=== PATIENT | female | born 1955 | race Caucasian/White ===

== ENCOUNTER 2021-04-06 09:22 | Outpatient (CLI) | payer OTHER | END 2021-04-06 09:31 | disposition home or self-care (01) | LOC: RX STUDY 09:22 | DX: K56.601 Complete intestinal obstruction, unspecified as to cause (principal) ==

== ENCOUNTER 2021-05-01 08:31 | Outpatient (CLI) | payer OTHER | END 2021-05-01 08:40 | disposition home or self-care (01) | LOC: TOM 08:31 | PROVIDERS: ATTEND Colon & Rectal Surgery | DX: C19 Malignant neoplasm of rectosigmoid junction (principal); K62.4 Stenosis of anus and rectum | CPT/HCPCS: 74177; Q9965 ==

== ENCOUNTER 2021-06-29 11:00 | Inpatient (IN) | payer OTHER ==
[~2021-06-29] VITALS: Ht 167.6 cm; Wt 54.4 kg
[2021-06-29] MEDS ORDERED: COZAAR50 MG PO (15:37)
[2021-06-29] MEDS ORDERED: DETROL2 MG PO (15:38)
[2021-06-29] MEDS ORDERED: NORVASC2.5 M1 PO (15:38)
[2021-06-29] MEDS ORDERED: SIMVAST PO (15:39)
[2021-06-29] MEDS ORDERED: MULTIVITAM PO (15:39)
[2021-07-01] MEDS ORDERED: SIMVASTATIN20 MG (13:21)
[2021-07-01] MEDS ORDERED: MULTI VITAMIN1 EACH (13:21)
[2021-07-01] MEDS ORDERED: ALENDRONATE SOD70 MG (13:21)
== END 2021-07-07 13:00 | disposition home or self-care (01) | DRG 331 ==
LOC: SURH 07-01 11:00 → O/R 07-01 12:03 → SURH 07-01 13:30 → SURG 07-01 19:21
PROVIDERS: ADMIT Colon & Rectal Surgery; ATTEND Colon & Rectal Surgery
PROC: 0DBP0ZZ Excision of Rectum, Open Approach (ICD-10-PCS; 2021-07-01)
PROC: 0D1B0Z4 Bypass Ileum to Cutaneous, Open Approach (ICD-10-PCS; 2021-07-01)
PROC: 0DBL0ZZ Excision of Transverse Colon, Open Approach (ICD-10-PCS; 2021-07-01)
PROC: 0DTN0ZZ Resection of Sigmoid Colon, Open Approach (ICD-10-PCS; principal; 2021-07-01 13:30)
DX: K62.4 Stenosis of anus and rectum (principal); R59.0 Localized enlarged lymph nodes; Z93.2 Ileostomy status; Z20.822 Contact with and (suspected) exposure to COVID-19; I11.9 Hypertensive heart disease without heart failure

== ENCOUNTER 2022-01-08 09:30 | Inpatient (IN) | payer OTHER ==
[~2022-01-08] VITALS: Ht 167.6 cm; Wt 54.4 kg
[~2022-01-08 09:30] MED LIST: ALENDRONATE SOD70 MG; COZAAR50 MG PO; DETROL LA2 MG; DETROL2 MG PO; MULTI VITAMIN1 EACH; MULTIVITAM PO; NORVASC2.5 M1 PO; SIMVAST PO; SIMVASTATIN20 MG
[2022-01-12] MEDS ORDERED: LOSARTAN POTASS50 MG (14:01)
[2022-01-12] MEDS ORDERED: NORVASC2.5 MG (14:01)
== END 2022-01-26 19:02 | disposition home or self-care (01) | DRG 347 ==
LOC: EDSTATUS 09:30 → ADM 09:30 → O/R 01-12 05:50 → SURH 01-12 05:50 → ICU 01-14 15:54 → SURH 01-21 18:30
PROVIDERS: ADMIT Colon & Rectal Surgery; ATTEND Colon & Rectal Surgery
PROC: 0DBB4ZZ Excision of Ileum, Percutaneous Endoscopic Approach (ICD-10-PCS; principal; 2022-01-12 08:45)
PROC: 0BH18EZ Insertion of Endotracheal Airway into Trachea, Via Natural or Artificial Opening Endoscopic (ICD-10-PCS; 2022-01-13)
PROC: 5A1955Z Respiratory Ventilation, Greater than 96 Consecutive Hours (ICD-10-PCS; 2022-01-13)
PROC: BW24YZZ Computerized Tomography (CT Scan) of Chest and Abdomen using Other Contrast (ICD-10-PCS; 2022-01-13)
PROC: 4A12X4Z Monitoring of Cardiac Electrical Activity, External Approach (ICD-10-PCS; 2022-01-13)
PROC: 02HV33Z Insertion of Infusion Device into Superior Vena Cava, Percutaneous Approach (ICD-10-PCS; 2022-01-14)
PROC: B24BYZZ Ultrasonography of Heart with Aorta using Other Contrast (ICD-10-PCS; 2022-01-14)
PROC: 0D9670Z Drainage of Stomach with Drainage Device, Via Natural or Artificial Opening (ICD-10-PCS; 2022-01-16)
PROC: 8E0ZXY6 Isolation (ICD-10-PCS; 2022-01-16)
PROC: 30243N1 Transfusion of Nonautologous Red Blood Cells into Central Vein, Percutaneous Approach (ICD-10-PCS; 2022-01-24)
DX: C18.7 Malignant neoplasm of sigmoid colon (principal); A41.9 Sepsis, unspecified organism; J95.821 Acute postprocedural respiratory failure; I21.A1 Myocardial infarction type 2; I26.99 Other pulmonary embolism without acute cor pulmonale; J80 Acute respiratory distress syndrome; J44.1 Chronic obstructive pulmonary disease with (acute) exacerbation; Z99.11 Dependence on respirator [ventilator] status; R71.0 Precipitous drop in hematocrit; N73.6 Female pelvic peritoneal adhesions (postinfective); Z93.2 Ileostomy status; I11.9 Hypertensive heart disease without heart failure; F17.200 Nicotine dependence, unspecified, uncomplicated; D72.829 Elevated white blood cell count, unspecified; J11.1 Influenza due to unidentified influenza virus with other respiratory manifestations